=== PATIENT | female | born 1975 | race Caucasian/White ===

== ENCOUNTER 2018-03-18 07:32 | Day surgery (SDC) | payer OTHER ==
[~2018-03-18 07:32] MED LIST: CEFAZOLIN 2 GM/50 ML (PMX) 50 ML IVPB; SOD CHLORIDE 0.9% 1,000 ML IV
[2018-03-18] MEDS ORDERED: BUPIVACAINE 0.25%/EPI (SDV) 30 ML INJ (08:52)
[2018-03-18] MEDS ORDERED: MIDAZOLAM 1 MG/ML 2 ML INJ (09:04)
[2018-03-18] MEDS ORDERED: FENTAnyl 50 MCG/ML VIAL (09:05)
[2018-03-18] MEDS ORDERED: LIDOCAINE 1% (MPF) 30 ML INJ (09:05)
[2018-03-18] MEDS ORDERED: PROPOFOL 20 ML (09:05)
[2018-03-18] MEDS ORDERED: LIDOCAINE 2% (SDV) 5 ML INJ (09:11)
[2018-03-18] MEDS ORDERED: CEFAZOLIN 1 GM INJ (09:15)
[2018-03-18] MEDS: BUPIVACAINE 0.25% (MPF) 30 ML INJ (09:22)
[2018-03-18] MEDS: LIDOCAINE 1%/EPI 30 ML INJ (09:23)
[2018-03-18] MEDS ORDERED: HYDROmorphONE (0.2 MG/ML) 10ML SYG IV (10:00)
[2018-03-18] MEDS ORDERED: ONDANSETRON 4 MG INJ IV (10:00)
[2018-03-18] MEDS ORDERED: FENTAnyl 50 MCG/ML VIAL IV (10:00)
[2018-03-18] MEDS ORDERED: IBUPROFEN 600 MG TAB PO (10:00)
== END 2018-03-18 10:50 | disposition home or self-care (01) ==
LOC: SDS 07:32
DX: L72.11 Pilar cyst (principal)
CPT/HCPCS: 11402; 88307